=== PATIENT | male | born 1985 | race American Indian/Alaskan Native ===

== ENCOUNTER 2020-05-05 08:11 | Emergency (ER) | payer SELFPAY ==
[2020-05-05 08:21] VITALS: BP 138/80
--- NOTE | 2020-05-05 11:17 | Emergency Department Report ---
Chief Complaint: Sore Throat Stated Complaint: MOUTH PAIN Time Seen by Provider: 05/05/20 11:09 - HPI History of Present Illness: This is a 34-year-old male with no prior medical history presents the ED complaining of gum pain on the upper left part of his mouth and associated throat pain x3 days. Patient denies any fever, chills, nausea vomiting, difficulty swallowing or breathing. Patient denies any swelling of the face or dental - ROS Review of Systems: As noted in HPI - Exam Vital Signs: Vital Signs 05/05/20 08:19 Temperature 98.1 F Pulse Rate 54 L Respiratory 16 Rate Blood Pressure 138/80 O2 Sat by Pulse 98 Oximetry Physical Exam: GENERAL: Alert and oriented x3, no apparent distress, Normal Gait, atraumatic. NOSE: Nose symetrical, Nontender,Nares appeared normal. MOUTH:Mouth is well hydrated and without lesions. Tonsils mildly erythematous but not swollen, Uvula midline, Tongue not elevated. Mucous membranes are [address]. Posterior pharynx clear, no exudate or lesions. Patent airways. Gingival ulcer noted on the top left thumb. NECK: Supple. Non edematous, No carotid bruits. No lymphadenopathy or thyromegaly. No C-spine tenderness SKIN: Warm and dry, No lesions, No ulceration or induration present. MSE screening note: Focused history and physical exam performed. Due to findings the following was ordered: ED Medical Decision Making - Medical Decision Making 34-year-old male presented to ED with gingival ulcer I discussed with patient that he may see his primary care physician as well as dentist about oral hygiene. Oral hygiene discussed. Vital signs are normal patient is in no acute or respiratory distress. Peridex mouthwash given to patient and referrals. ED Disposition for MSE Clinical Impression: Gingival ulcer, Tonsillitis Disposition: [id number] TO HOME OR SELFCARE Is pt being admited?: No Does the pt Need Aspirin: No Condition: Stable Instructions: Tonsillitis (ED) Additional Instructions: Make sure to follow up with the primary care physician as discussed. Take all your medications as you've been prescribed. If you have any worsening symptoms or develop new symptoms please return to ED immediately. Prescriptions: Nystas/Diphen/Xyl Visc/Mylanta [Magic Mouthwash] 30 ml MM Q4H #120 ml Chlorhexidine Mouthwash [Peridex] 15 ml MM BID #1 bottle Referrals: PRIMARY CARE, [Primary Care Provider] - 3-5 Days [facility] [Outside] - 3-5 Days [facility] [Outside] - 3-5 Days Forms: Work/School Release Form(ED) Time of Disposition: 11:20
== END 2020-05-05 11:53 | disposition home or self-care (01) ==
LOC: ED 08:11
DX: K06.8 Other specified disorders of gingiva and edentulous alveolar ridge (principal); J03.90 Acute tonsillitis, unspecified
CPT/HCPCS: 99281